=== PATIENT | female | born 1985 | race African-American/Black ===

== ENCOUNTER 2017-03-01 13:30 | Emergency (ER) | payer MEDICAID ==
[~2017-03-01] VITALS: Ht 167.6 cm; Wt 69.0 kg
[~2017-03-01 13:30] MED LIST: ALBUTEROL
[2017-03-01 13:44] VITALS: BP 122/37
== END 2017-03-01 16:39 | disposition left against medical advice (07) ==
LOC: ER 15:18
DX: M54.2 Cervicalgia (principal); M54.9 Dorsalgia, unspecified; Z53.21 Procedure and treatment not carried out due to patient leaving prior to being seen by health care provider